=== PATIENT | female | born 1955 | race Caucasian/White ===

== ENCOUNTER 2020-09-25 09:24 | Emergency (ER) | payer MEDICARE ==
[2020-09-25 11:00] LABS: CORONAVIRUS 2019 SARS-COV-2 NEGATIVE (NEGATIVE)
[2020-09-25 11:01] LABS: INFLUENZA A NAA NEGATIVE (NEGATIVE)
== END 2020-09-25 20:14 | disposition other institution (70) ==
LOC: FER 09:24
PROVIDERS: Emergency Medicine
DX: S72.401A Unspecified fracture of lower end of right femur, initial encounter for closed fracture (principal); S72.411A Displaced unspecified condyle fracture of lower end of right femur, initial encounter for closed fracture; I10 Essential (primary) hypertension; E07.9 Disorder of thyroid, unspecified; Z79.82 Long term (current) use of aspirin; Z79.899 Other long term (current) drug therapy; W00.0XXA Fall on same level due to ice and snow, initial encounter; Z20.822 Contact with and (suspected) exposure to COVID-19
CPT/HCPCS: 73564; 96374; 96375; 96376; J1170; J2405; U0002

== ENCOUNTER 2021-04-27 13:29 | Emergency (ER) | payer MEDICARE ==
[2021-04-27] MEDS ORDERED: ONDANSETRON ODT4 MG PO (16:57)
[2021-04-27] MEDS ORDERED: PERCOCET 5-3251 EACH PO (16:57)
[2021-04-30] MEDS ORDERED: ELIQUIS2.5 MG PO (13:30)
[2021-04-30] MEDS ORDERED: LOSARTAN-HCTZ1 EAC1 PO (13:30)
[2021-04-30] MEDS ORDERED: EFFEXOR XR150 MG PO (13:31)
[2021-04-30] MEDS ORDERED: VITAMIN D3250 MC1 PO (13:31)
[2021-04-30] MEDS ORDERED: SYNTHROID88 MCG PO (13:31)
[2021-04-30] MEDS ORDERED: ZYRTEC10 M3 PO (13:31)
[2021-04-30] MEDS ORDERED: RED YEAST RICE600 MG PO (13:32)
[2021-04-30] MEDS ORDERED: CO Q10100 MG PO (13:32)
[2021-04-30] MEDS ORDERED: ASPIRIN EC81 MG PO (13:32)
[2021-04-30] MEDS ORDERED: PRAVASTATIN SOD40 MG PO (13:32)
== END 2021-04-27 17:40 | disposition home or self-care (01) ==
LOC: FER 13:29
DX: S52.572A Other intraarticular fracture of lower end of left radius, initial encounter for closed fracture (principal); S52.612A Displaced fracture of left ulna styloid process, initial encounter for closed fracture; I10 Essential (primary) hypertension; Z88.8 Allergy status to other drugs, medicaments and biological substances; Z79.899 Other long term (current) drug therapy; Z20.822 Contact with and (suspected) exposure to COVID-19; W18.31XA Fall on same level due to stepping on an object, initial encounter; Y92.009 Unspecified place in unspecified non-institutional (private) residence as the place of occurrence of the external cause
CPT/HCPCS: 73110; U0002

== ENCOUNTER → 2021-05-02 | Day surgery (SDC) | payer MEDICARE ==
[~2021-05-02] VITALS: Ht 160 cm; Wt 102.0 kg
[~2021-05-02] MED LIST: ASPIRIN EC81 MG PO; CO Q10100 MG PO; EFFEXOR XR150 MG PO; ELIQUIS2.5 MG PO; LOSARTAN-HCTZ1 EAC1 PO; ONDANSETRON ODT4 MG PO; PERCOCET 5-3251 EACH PO; PRAVASTATIN SOD40 MG PO; RED YEAST RICE600 MG PO; SYNTHROID88 MCG PO; VITAMIN D3250 MC1 PO; ZYRTEC10 M3 PO
[2021-05-02 12:16] LABS: HGB 12.8 g/dl (12.5-16.0); MCH 30.8 pg (25.0-31.0); MCHC 32.8 g/dL (32.0-36.0); MCV 93.8 fL (78.0-100.0); MPV 9.2 fL (6.0-9.5); RBC 4.16 M/uL (4.20-5.40); RDW 13.1 % (11.5-14.0); WBC 6.9 K/uL (4.0-10.5)
[2021-05-02 12:33] LABS: ALBUMIN 3.5 g/dL (3.4-5.0); BILIRUBIN - TOTAL 0.3 mg/dL (0.2-1.0); BUN/CREAT RATIO (CALC) 22.8 RATIO; CREATININE 0.79 mg/dL (0.51-0.95); GLOBULIN (CALCULATION) 3.8 g/dL; POTASSIUM 3.2 mmol/L (3.5-5.1); TOTAL PROTEIN 7.3 g/dL (6.4-8.2)
== END | disposition home or self-care (01) ==
LOC: FAS 11:03
PROVIDERS: Orthopaedic Surgery
DX: S52.572A Other intraarticular fracture of lower end of left radius, initial encounter for closed fracture (principal); X58.XXXA Exposure to other specified factors, initial encounter; Z88.8 Allergy status to other drugs, medicaments and biological substances; Z96.653 Presence of artificial knee joint, bilateral; R94.31 Abnormal electrocardiogram [ECG] [EKG]
CPT/HCPCS: 36415; 71045; 73100; 76000; 80053; 93005; C1713; C1769; J0690; J1170; J2250; J2405; J2704; J3010; J7120